=== PATIENT | male | born 1980 | race African-American/Black ===

== ENCOUNTER 2017-01-29 22:00 | Emergency (ER) | payer OTHER | END 2017-01-29 23:07 | LOC: ERS 22:00 | DX: F10.129 Alcohol abuse with intoxication, unspecified (principal); F17.210 Nicotine dependence, cigarettes, uncomplicated; F31.9 Bipolar disorder, unspecified; F20.9 Schizophrenia, unspecified ==

== ENCOUNTER 2017-01-30 10:54 | Emergency (ER) | payer OTHER ==
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
[2017-01-30] MEDS ORDERED: Ketorolac Tromethamine 60 MG/2 ML VIAL ONE (12:05)
== END 2017-01-30 12:10 | disposition home or self-care (01) ==
LOC: ERS 10:54
DX: S63.617A Unspecified sprain of left little finger, initial encounter (principal); F31.9 Bipolar disorder, unspecified; F20.9 Schizophrenia, unspecified; F17.210 Nicotine dependence, cigarettes, uncomplicated; X58.XXXA Exposure to other specified factors, initial encounter
CPT/HCPCS: 99284; J1885

== ENCOUNTER 2017-04-03 14:10 | Inpatient (IN) | payer OTHER ==
[~2017-04-03 14:10] MED LIST: ISOVUE-370 76%-LOCM 1 ML ONE
[2017-04-03] MEDS ORDERED: Succinylcholine Chloride 20 MG/ML 10 ml SYRINGE FS ONE (14:27)
[2017-04-03] MEDS ORDERED: Propofol 1,000 MG/100 ML VIAL IV ONE ×2 (14:30→20:30)
[2017-04-03 14:53] LABS: Hemoglobin 15.1 g/dL (14.0-18.0); Mean Corpuscular HGB CONC 31.1 g/dL (32.0-36.0); Mean Corpuscular Hemoglobin 28.5 pg (27.0-31.0); Mean Corpuscular Volume 91.7 fl (80.0-94.0); Mean Platelet Volume 8.1 fL (7.4-10.4); Platelet Count 257 thou/uL (130-400); RBC Distribution Width 12.6 % (11.5-14.5); Red Blood Cell (RBC) Count 5.28 mill/uL (4.70-6.10); White Blood Cell (WBC) Count 11.9 thou/uL (4.8-10.8)
[2017-04-03 14:59] LABS: PTT 24.3 SEC (22.9-36.1)
[2017-04-03 15:01] LABS: Actual Bicarbonate (HCO3a) 15.4 mEq/L (22-26); Base Excess (BEa) -12.9 mEq/L (0 (+/-) 2.5); CO2 Tension 44.4 mmHg (35.0-45.0); Hematocrit-ABG 47.6 % (42.0-52.0); Hemoglobin (Hb) 14.7 g/dL (14.0-18.0); O2 Tension (PaO2) 159.9 mmHg (80.0-100.0); pH, Arterial 7.16 (7.35-7.45)
[2017-04-03 15:02] LABS: Calcium, Ionized 1.3 mmol/L (1.12-1.30); Puncture Site RBA
[2017-04-03 15:04] LABS: INR-International Normal Ratio 1.1; Prothrombin Time 14.3 SEC (12.0-14.7)
[2017-04-03 15:10] LABS: Bilirubin Negative (Negative); Blood, Urine Large (Negative); Clarity CLOUDY (Clear); Glucose, Urine (Dipstick) Negative (Negative); Leukocyte Negative (Negative); Nitrite Negative (Negative); Protein, Urine (Dipstick) 300 mg/dL (Neg-Trace); Urobilinogen 0.2 mg/dL (0.2-1.0)
[2017-04-03 15:13] LABS: Bacteria/HPF None Seen HPF (None Seen)
[2017-04-03 15:13] LABS: ALT (SGPT) 35 U/L (8-55); AST (SGOT) 23 U/L (5-34); Acetaminophen Less than 6.0 mcg/mL (10.0-30.0); Albumin 5.1 g/dL (3.5-5.0); Alcohol Less than 10 mg/dL (Less than 10); Alkaline Phosphatase 74 U/L (40-150); Anion Gap 27 mmol/L (10-20); BUN (Urea Nitrogen) 19 mg/dL (8.9-20.6); Bilirubin, Total 1.2 mg/dL (0.2-1.2); CK (CPK) 428 U/L (30-200); Calc. Creatinine Clearance 0 mL/min (70-130); Calcium 9.9 mg/dL (7.8-10.44); Carbon Dioxide 14 mmol/L (22-29); Chloride 107 mmol/L (98-107); Estimated GFR-MDRD 62; Globulin 3.7 g/dL (2.4-3.5); Glucose 159 mg/dL (70-105); Protein, Total 8.8 g/dL (6.0-8.3); Salicylate Less than 8.0 mg/dL (15.0-30.0); Sodium 144 mmol/L (136-145)
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
[2017-04-03] MEDS ORDERED: Acetaminophen 650 MG Suppository ONE (15:18)
[2017-04-03 15:26] LABS: Hyaline Casts/LPF 7-10 HYALINE CAST LPF (0-3 Hyaline); Pathc Cast-AUWi Flag 4.74 (0-2.49)
[2017-04-03] MEDS ORDERED: Fentanyl 100 MCG/2 ML VIAL ONE (15:39)
[2017-04-03 15:41] LABS: Amphetamine Not Detected (NotDetected); Barbiturates Screen Not Detected (NotDetected); Benzodiazepine Screen Not Detected (NotDetected); Cocaine Metabolite Screen Not Detected (NotDetected); Medtox Control Line Valid? VALID (VALID); Medtox Reader # READER 4; Methadone Not Detected (NotDetected); Methamphetamine Not Detected (NotDetected); Opiate Screen Not Detected (NotDetected); Oxycodone Screen Not Detected (NotDetected); Phencyclidine (PCP) Detected (NotDetected); THC/Cannabinoid Screen Not Detected (NotDetected); Tricyclic Screen Not Detected (NotDetected)
[2017-04-03 15:44] LABS: Band 1 % (5-11); Eosinophils 1 % (0-10); Lymphocytes 49 % (21-51); MDiff Complete? YES; Monocytes 8 % (0-10); Neutrophil 41 % (42-75); PLT Morphology Comment Appears Adequate
[2017-04-03] MEDS ORDERED: fentaNYL Citrate/PF 2,000 MCG in Sodium Chloride 0.9% 60 ML IV SCH ×2 (15:45→20:41)
[2017-04-03] MEDS ORDERED: Midazolam HCl 2 mg/2 ml Vial ONE ×2 (15:48→16:30)
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
[2017-04-03 19:58] LABS: Lactic Acid 1.4 mmol/L (0.5-2.2)
[2017-04-03] MEDS ORDERED: Propofol 1,000 MG/100 ML VIAL IV PRN (20:27)
[2017-04-03] MEDS ORDERED: Fentanyl 20 MCG/ML 250 ML IVPB SCH (20:27)
[2017-04-03] MEDS ORDERED: Diprivan 0 ML ONE (20:29)
[2017-04-03] MEDS ORDERED: Sodium Chloride 0.9% 1,000 ML IV SCH ×2 (20:30→20:33)
[2017-04-03] MEDS ORDERED: Dextrose 5% in Water 1,000 ML IV PRN ×2 (20:33→20:39)
[2017-04-03] MEDS ORDERED: Ventilator Sedation Protocol 1 EACH FS SCH (20:33)
[2017-04-03] MEDS ORDERED: Ondansetron HCl/PF 4 MG/2 ML Vial IVP PRN ×2 (20:33→20:40)
[2017-04-03] MEDS ORDERED: hydrALAZINE 20 MG/ML VIAL SLOW IVP PRN ×2 (20:33→20:40)
[2017-04-03] MEDS ORDERED: Ondansetron ODT 4 MG TAB PO PRN ×2 (20:33→20:40)
[2017-04-03] MEDS ORDERED: Dextrose 50% Abboject 50 ML SYRINGE SLOW IVP PRN ×2 (20:33→20:40)
[2017-04-03] MEDS ORDERED: Lorazepam 2 MG/ML VIAL SLOW IVP PRN (20:41)
[2017-04-03] MEDS ORDERED: Morphine 2 MG/ML SYRINGE SLOW IVP PRN (20:41)
[2017-04-03] MEDS: Sodium Chloride 0.9% 1,000 ML IV SCH (20:45)
[2017-04-03 20:53] LABS: CO2 Tension 33.3 mmHg (35.0-45.0); O2 Tension (PaO2) 148.7 mmHg (80.0-100.0); pH, Arterial 7.42 (7.35-7.45)
[2017-04-03 20:54] LABS: ALV-art Gradient 94.875 (0-20); Actual Bicarbonate (HCO3a) 21.2 mEq/L (22-26); Base Excess (BEa) -2.5 mEq/L (0 (+/-) 2.5); Calcium, Ionized 1.2 mmol/L (1.12-1.30); Hematocrit-ABG 38.7 % (42.0-52.0); Hemoglobin (Hb) 12.9 g/dL (14.0-18.0); Puncture Site LBR
[2017-04-03 20:55] VITALS: BMI 25.9
[2017-04-04] MEDS: Propofol 1,000 MG/100 ML VIAL IV PRN ×2 (00:34→04:29)
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
[2017-04-04] MEDS: Sodium Chloride 0.9% 1,000 ML IV SCH (04:29)
[2017-04-04 06:10] LABS: #Eosinphils 0.3 thou/uL (0.0-0.7); #Lymphocytes 2.6 thou/uL (1.20-3.40); #Monocytes 0.8 thou/uL (0.11-0.59); #Neutrophils 4.6 thou/uL (1.40-6.50); %Basophils 0.4 % (0.0-1.0); %Eosinophils 3.4 % (0.0-10.0); %Monocytes 9.9 % (0.0-10.0); %Neutrophils 55.3 % (42.0-75.0); Hemoglobin 12.9 g/dL (14.0-18.0); Mean Corpuscular HGB CONC 32.8 g/dL (32.0-36.0); Mean Corpuscular Hemoglobin 29.2 pg (27.0-31.0); Mean Platelet Volume 7.7 fL (7.4-10.4); Platelet Count 203 thou/uL (130-400); RBC Distribution Width 12.6 % (11.5-14.5); White Blood Cell (WBC) Count 8.4 thou/uL (4.8-10.8)
[2017-04-04 06:34] LABS: Calcium 8.8 mg/dL (7.8-10.44); Chloride 113 mmol/L (98-107); Magnesium 2.1 mg/dL (1.6-2.6); Phosphorus 2.7 mg/dL (2.3-4.7); Potassium 3.2 mmol/L (3.5-5.1); Sodium 142 mmol/L (136-145)
[2017-04-04 06:45] LABS: BUN (Urea Nitrogen) 15 mg/dL (8.9-20.6); Calc. Creatinine Clearance 155 mL/min (70-130); Carbon Dioxide 19 mmol/L (22-29); Estimated GFR-MDRD Greater than 90; Glucose 72 mg/dL (70-105)
[2017-04-04 07:00] VITALS: BP 106/71
[2017-04-04] MEDS ORDERED: Potassium Chloride 40 MEQ in Sodium Chloride 0.9% 250 ML 250 ML IVPB SCH (07:30)
[2017-04-04 07:34] LABS: CO2 Tension 26.2 mmHg (35.0-45.0)
[2017-04-04 07:35] LABS: Actual Bicarbonate (HCO3a) 19.9 mEq/L (22-26); O2 Tension (PaO2) 158.2 mmHg (80.0-100.0)
[2017-04-04 07:36] LABS: Calcium, Ionized 1.3 mmol/L (1.12-1.30); Puncture Site LRA
[2017-04-04 07:46] LABS: Anion Gap 13 mmol/L (10-20)
--- NOTE | 2017-04-04 08:59 | RAD ---
PORTABLE UPRIGHT FRONTAL CHEST RADIOGRAPH: Date: 04-04-17 Comparison: 04-03-17 History: Follow up pulmonary contusion. FINDINGS: An endotracheal tube is present, terminating at the level of the clavicles. Nasogastric tube extends into upper abdomen. No pneumothorax or pleural fluid. No focal consolidation or alveolar edema. IMPRESSION: Lines and tubes as above. Lungs are grossly unremarkable. POS: [facility]
[2017-04-04] MEDS ORDERED: FLU VACC QS2017-18 36 mo. & older 0.5 ML SYRINGE IM ONE (09:00)
[2017-04-04] MEDS ORDERED: Acetaminophen 500 MG TAB PO PRN (10:21)
[2017-04-04] MEDS ORDERED: Ibuprofen 800 MG TAB PO PRN (10:21)
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
[2017-04-04 13:02] VITALS: TEMP 98.7
== END 2017-04-04 13:19 | disposition home or self-care (01) | DRG 208 ==
LOC: ERS 14:10 → CCU 17:43
PROVIDERS: ADMIT Surgery; ATTEND Surgery
PROC: 5A1935Z Respiratory Ventilation, Less than 24 Consecutive Hours (ICD-10-PCS; principal; 2017-04-03)
PROC: 0BH17EZ Insertion of Endotracheal Airway into Trachea, Via Natural or Artificial Opening (ICD-10-PCS; 2017-04-03)
PROC: 0BP1XDZ Removal of Intraluminal Device from Trachea, External Approach (ICD-10-PCS; 2017-04-04)
DX: J96.00 Acute respiratory failure, unspecified whether with hypoxia or hypercapnia (principal); N17.9 Acute kidney failure, unspecified; E87.2 Acidosis; F20.9 Schizophrenia, unspecified; S06.0X9A Concussion with loss of consciousness of unspecified duration, initial encounter; F16.120 Hallucinogen abuse with intoxication, uncomplicated; F17.210 Nicotine dependence, cigarettes, uncomplicated; V49.9XXA Car occupant (driver) (passenger) injured in unspecified traffic accident, initial encounter; Z80.42 Family history of malignant neoplasm of prostate; Z88.1 Allergy status to other antibiotic agents; R40.2410 Glasgow coma scale score 13-15, unspecified time; Y92.410 Unspecified street and highway as the place of occurrence of the external cause
CPT/HCPCS: 36415; 70450; 71045; 71260; 72125; 74177; 80048; 80053; 80306; 80307; 81003; 81015; 82550; 82805; 83605; 83735; 83930; 84100; 85025; 85610; 85730; 93005; 94002; 94003; 94640; G0390; J2250; J2704; J3010; J3480; J7050; J7620

== ENCOUNTER 2017-10-09 19:42 | Emergency (ER) | payer MEDICAID, OTHER ==
[2017-10-09 20:30] LABS: #Basophils 0.1 thou/uL (0.0-0.2); #Eosinphils 0.3 thou/uL (0.0-0.7); #Monocytes 0.6 thou/uL (0.11-0.59); #Neutrophils 2.6 thou/uL (1.40-6.50); %Lymphocytes 36.5 % (21.0-51.0); %Monocytes 10.2 % (0.0-10.0); %Neutrophils 47.3 % (42.0-75.0); Hemoglobin 12.8 g/dL (14.0-18.0); Mean Corpuscular HGB CONC 33.4 g/dL (32.0-36.0); Mean Corpuscular Hemoglobin 29.3 pg (27.0-31.0); Mean Corpuscular Volume 87.8 fL (78.0-98.0); Mean Platelet Volume 7.7 fL (7.4-10.4); Platelet Count 196 thou/uL (130-400); RBC Distribution Width 12.6 % (11.5-14.5); Red Blood Cell (RBC) Count 4.37 mill/uL (4.70-6.10); White Blood Cell (WBC) Count 5.5 thou/uL (4.8-10.8)
[2017-10-09] MEDS ORDERED: Metoprolol Tartrate 5 MG/5 ML VIAL ONE (20:40)
[2017-10-09 20:52] LABS: ALT (SGPT) 27 U/L (8-55); AST (SGOT) 21 U/L (5-34); Albumin 4.1 g/dL (3.5-5.0); Alkaline Phosphatase 62 U/L (40-150); Anion Gap 11 mmol/L (10-20); BUN (Urea Nitrogen) 16 mg/dL (8.9-20.6); Bilirubin, Total 0.8 mg/dL (0.2-1.2); Calc. Creatinine Clearance 0 mL/min (70-130); Calcium 9.2 mg/dL (7.8-10.44); Carbon Dioxide 22 mmol/L (22-29); Chloride 110 mmol/L (98-107); Estimated GFR-MDRD Greater than 90; Globulin 2.9 g/dL (2.4-3.5); Glucose 108 mg/dL (70-105); Potassium 3.8 mmol/L (3.5-5.1); Sodium 139 mmol/L (136-145)
[2017-10-09 21:04] LABS: Bilirubin Negative (Negative); Blood, Urine Negative (Negative); Clarity CLOUDY (Clear); Glucose, Urine (Dipstick) Negative (Negative); Leukocyte Negative (Negative); Nitrite Negative (Negative); Protein, Urine (Dipstick) Negative (Neg-Trace); Specific Gravity, Urine 1.027 (1.002-1.036)
--- NOTE | 2017-10-09 21:06 | RAD ---
AP VIEW OF THE CHEST: 10/09/17 INDICATION: 37-year-old male with cough and history of smoking PCP. The patient is having blindness in the right eye. IMPRESSION: No acute cardiopulmonary abnormality. The exam is compared to a prior dated 04/04/17. COMMENTS: The lungs are clear. The cardiomediastinal silhouette is within normal limits. No acute osseous abnor mality is evident. POS: [facility]
[2017-10-09 21:15] LABS: Amphetamine Not Detected (NotDetected); Barbiturates Screen Not Detected (NotDetected); Benzodiazepine Screen Not Detected (NotDetected); Cocaine Metabolite Screen Detected (NotDetected); Medtox Control Line Valid? VALID (VALID); Medtox Reader # READER 4; Methadone Not Detected (NotDetected); Methamphetamine Not Detected (NotDetected); Opiate Screen Not Detected (NotDetected); Oxycodone Screen Not Detected (NotDetected); Phencyclidine (PCP) Detected (NotDetected); THC/Cannabinoid Screen Detected (NotDetected); Tricyclic Screen Not Detected (NotDetected)
== END 2017-10-09 21:46 | disposition home or self-care (01) ==
LOC: ERS 19:42
DX: F19.10 Other psychoactive substance abuse, uncomplicated (principal); R53.81 Other malaise; F31.9 Bipolar disorder, unspecified; F20.9 Schizophrenia, unspecified; F17.210 Nicotine dependence, cigarettes, uncomplicated; F41.9 Anxiety disorder, unspecified
CPT/HCPCS: 36415; 71045; 80053; 80306; 81003; 83605; 85025; 93005

== ENCOUNTER 2021-01-01 13:33 | Emergency (ER) | payer OTHER | END 2021-01-01 14:20 | disposition home or self-care (01) | LOC: ERS 13:33 | DX: F43.0 Acute stress reaction (principal); F41.9 Anxiety disorder, unspecified; I10 Essential (primary) hypertension; F17.210 Nicotine dependence, cigarettes, uncomplicated | CPT/HCPCS: 99284 ==

== ENCOUNTER 2021-03-22 21:59 | Emergency (ER) | payer OTHER ==
[2021-03-22 22:53] LABS: Acetaminophen Less than 6.0 mcg/mL (10.0-30.0); Alcohol Less than 10 mg/dL (Less than 10); Salicylate Less than 8.0 mg/dL (15.0-30.0)
== END 2021-03-22 23:30 | disposition home or self-care (01) ==
LOC: ERS 21:59
DX: R00.0 Tachycardia, unspecified (principal); F17.210 Nicotine dependence, cigarettes, uncomplicated; V89.2XXA Person injured in unspecified motor-vehicle accident, traffic, initial encounter
CPT/HCPCS: 36415; 80307; 99284

== ENCOUNTER 2022-03-17 10:38 | Emergency (ER) | payer SELFPAY | END 2022-03-17 10:55 | disposition home or self-care (01) | LOC: ERS 10:38 | DX: F16.129 Hallucinogen abuse with intoxication, unspecified (principal); R41.82 Altered mental status, unspecified; F17.210 Nicotine dependence, cigarettes, uncomplicated | CPT/HCPCS: 99284 ==

== ENCOUNTER 2022-06-03 04:38 | Emergency (ER) | payer SELFPAY | END 2022-06-03 04:47 | LOC: ERS 04:38 | DX: F16.10 Hallucinogen abuse, uncomplicated (principal); Z02.89 Encounter for other administrative examinations ==